=== PATIENT | female | born 1990 | race Caucasian/White ===

== ENCOUNTER 2016-11-30 02:36 | Inpatient (IN) | payer OTHER ==
[~2016-11-30] VITALS: Ht 160 cm; Wt 80.5 kg
[2016-11-30 04:01] LABS: AMNI OBC PASS; AMNISURE POSITIVE (NEGATIVE)
[2016-11-30] MEDS ORDERED: OXYTOCIN 30U/ 0.9% NaCL 500ML 500 ML IV ONE (04:07)
[2016-11-30] MEDS: D5%-LACTATED RINGERS 1,000 ML IV SCH ×3 (04:07→20:07)
[2016-11-30] MEDS: LACTATED RINGERS 1,000 ML IV SCH ×4 (04:19→22:13)
[2016-11-30] MEDS ORDERED: FENTANYL PF 100 MCG/2ML IV PRN (04:30)
[2016-11-30] MEDS ORDERED: CALCIUM CARBONATE 500 MG TAB.CHEW PO PRN ×2 (04:30→12:00)
[2016-11-30] MEDS ORDERED: PLEASE ENTER ALLERGIES MC SCH ×2 (04:30)
[2016-11-30] MEDS ORDERED: ONDANSETRON 2MG/ML, 2ML IVPush PRN (04:30)
[2016-11-30] MEDS ORDERED: SODIUM CITRATE/CITRIC ACID 30 ML UDC PO PRN (04:30)
[2016-11-30] MEDS ORDERED: ALUMINUM/MAG/SIMETHICONE 30 ML UDC PO PRN (04:30)
[2016-11-30] MEDS ORDERED: TERBUTALINE 1 MG/ML, 1ML IVPush PRN ×2 (04:30)
[2016-11-30] MEDS ORDERED: LIDOCAINE 1%, 20ML ONE (06:10)
[2016-11-30] MEDS ORDERED: MISOPROSTOL 200 MCG TABLET ONE (06:10)
[2016-11-30] MEDS ORDERED: OXYTOCIN 30U/ 0.9% NaCL 500ML 500 ML ONE (06:10)
[2016-11-30] MEDS ORDERED: FENTANYL PF 100 MCG/2ML ONE ×2 (06:18→08:54)
[2016-11-30] MEDS: FENTANYL PF 100 MCG/2ML IVPush PRN ×3 (06:20→22:53)
[2016-11-30] MEDS ORDERED: FENTANYL/BUPIV./NS/PF 250 ML EPIDCONT ONE (08:54)
[2016-11-30] MEDS ORDERED: BUPIVACAINE 0.25% ONE (08:54)
[2016-11-30] MEDS ORDERED: PREN1TAB60 PO (10:37)
[2016-11-30] MEDS: OXYTOCIN 30U/ 0.9% NaCL 500ML 500 ML IV SCH ×2 (11:51→21:51)
[2016-11-30] MEDS ORDERED: ONDANSETRON 2MG/ML, 2ML IV PRN (12:00)
[2016-11-30] MEDS ORDERED: HYDROcodone/APAP 5/325 TABLET PO PRN ×2 (12:00)
[2016-11-30] MEDS ORDERED: MISOPROSTOL 200 MCG TABLET PR PRN (12:00)
[2016-11-30] MEDS ORDERED: DIPH,PERTUSS(ACELL),TET VAC/PF NC IM-VACC PRN (12:00)
[2016-11-30] MEDS ORDERED: DOCUSATE 100 MG CAPSULE PO PRN (12:00)
[2016-11-30] MEDS ORDERED: IBUPROFEN 600 MG TABLET PO PRN (12:00)
[2016-11-30] MEDS ORDERED: IBUPROFEN 600 MG TABLET ONE (12:36)
[2016-11-30] MEDS ORDERED: FENTANYL/BUPIV./NS/PF 250 ML EPIDCONT SCH (14:13)
[2016-11-30] MEDS ORDERED: LACTATED RINGERS 1,000 ML IVBOLUS PRN (14:30)
[2016-11-30 16:10] VITALS: BP 115/66
[2016-11-30 20:35] VITALS: BP 121/84
[2016-11-30] MEDS ORDERED: IBUP800T PO (23:26)
[2016-11-30] MEDS ORDERED: HYDR-3240 PO (23:26)
[2016-12-01 00:29] VITALS: BP 117/73
[2016-12-01] MEDS ORDERED: MEASLES,MUMPS&RUBELLA VACC/PF 0.5 ML SQ-VACC ONE (04:45)
[2016-12-01 05:00] VITALS: BP_SYST 116; BP_SYST 135; BP_DIAS 76; BP_DIAS 82
[2016-12-01 06:50] VITALS: BP 108/71
[2016-12-01] MEDS: OXYTOCIN 30U/ 0.9% NaCL 500ML 500 ML IV SCH (07:51)
[2016-12-01] MEDS ORDERED: PRENATAL VIT/IRON/FA 1 EACH TABLET PO SCH (09:00)
== END 2016-12-01 11:56 | disposition home or self-care (01) | DRG 775 ==
LOC: LDOP 02:36 → LDIP 04:09 → 2NW 16:00
PROVIDERS: ADMIT Obstetrics & Gynecology; ATTEND Obstetrics & Gynecology
PROC: 10E0XZZ Delivery of Products of Conception, External Approach (ICD-10-PCS; principal; 2016-11-30)
PROC: 00HU33Z Insertion of Infusion Device into Spinal Canal, Percutaneous Approach (ICD-10-PCS; 2016-11-30)
PROC: 3E0R3CZ (ICD-10-PCS; 2016-11-30)
DX: O99.814 Abnormal glucose complicating childbirth (principal); Z37.0 Single live birth; Z3A.39 39 weeks gestation of pregnancy; Z23 Encounter for immunization; O71.89 Other specified obstetric trauma
CPT/HCPCS: 36415; 84112; 85025; 86850; 86900; 89060; J3010; J2590; J7120; Q0114